=== PATIENT | male | born 1980 | race Caucasian/White ===

== ENCOUNTER 2017-08-03 19:50 | Emergency (ER) | payer SELFPAY ==
[~2017-08-03] VITALS: Ht 180.3 cm; Wt 87.0 kg
[2017-08-03 20:31] VITALS: Ht 180.3 cm; Wt 87.0 kg
--- NOTE | 2017-08-04 00:49 | ERD ---
ER Documentation Chief Complaint Date/Time DATE: 08/04/17 TIME: 00:47 Chief Complaint c/o left foot pain. (+) swelling. States rolled foot during excercise. HPI This 36-year-old male patient presents to emergency department for evaluation of let foot injury. pt reports that he was at the gym 5-6 hours ago doing pull- ups, went to drop down and landed on a object on the floor causing him to roll left foot pt was able to get up w/o assist, report pain with weight bearing. Patient denies numbness or tingling to toes, change in sensation or temperature. ROS All systems reviewed and are negative except as per history of present illness. Medications Home Meds Active Scripts Ibuprofen* (Motrin*) 600 Mg Tab, 600 MG PO Q6, #30 TAB Prov:ISABEL DALAL 08/04/17 Physical Exam Vitals Vital Signs Date Time Temp Pulse Resp B/P Pulse Ox O2 Delivery O2 Flow Rate FiO2 08/03/17 20:31 98.2 91 18 145/69 96 Physical Exam Const: Nourished well-hydrated well-appearing 36-year-old male patient no acute distress, obvious discomfort. Head: Eyes: ENT: Neck: Resp: Cardio: Abd: Skin: Back: Ext: Lower Extremity -left foot: Skin: No laceration, edema with demarcation left foot dorsal along fifth and fourth metatarsal Compartments: Soft Motor: Full active range of motion hip/knee/ankle, patient unable to weight-bear Sensation: Intact to light touch anterior, posterior, and lateral surfaces. Bones: Nontender pelvis/knee/proximal tibia/ malleoli, distal tibial tenderness Joints: No effusion or laxity Pulses/Perfusion: 2+ DP, Capillary refill < 2 seconds Neur: Awake and alert Psych: Normal Mood and Affect Results 24 hrs Current Medications Medications (Trade) Dose Ordered Sig/Stephenie Route PRN Reason Start Time Stop Time Status Last Admin Dose Admin Acetaminophen/ Hydrocodone Bitart ([place] (5/325)) 1 tab ONCE ONCE PO 08/04/17 01:00 08/04/17 01:00 DC Ibuprofen (Motrin) 600 mg ONCE ONCE PO 08/04/17 01:00 08/04/17 01:01 DC 08/04/17 01:11 Procedures/MDM PROCEDURE: XR Foot. CLINICAL INDICATION: Trauma. TECHNIQUE: AP, lateral and oblique views of the left foot was obtained. COMPARISON: There are no similar studies submitted for comparison. FINDINGS: There is an acute avulsion fracture of the epiphysis at the base of the fifth metatarsal bone. No other definite fracture or dislocation is identified. There is overlying soft tissue swelling. No osseous erosions are identified. The joint spaces are within normal limits. IMPRESSION: Avulsion fracture at the base of the fifth metatarsal bone. Electronically viewed and signed by .Kranthi Marie MD, on 08/04/2017 02:09 This pleasant 36-year-old male patient presents to emergency department for evaluation of a left foot injury, patient was at the gym doing pull-ups drop down to the ground and landed on a piece of equipment that was left on the floor. Patient reports hitting the floor hard rolling his ankle and falling. Patient did not need assistance getting up, was able to get to his car, patient reports he is no longer able to weight-bear without pain. Emergency room course includes history, physical, pain control, and a left foot x-ray positive for a avulsion fracture at the base of the fifth metatarsal bone. Patient will be placed in a short leg posterior splint, crutches, with crutch training, follow-up with primary care physician for orthopedic consult or go to any of the orthopedic physicians listed on discharge today. Patient is stable with no new complaints during ER course, clinically there is no current evidence to suggest compartment syndrome, Lisfranc fracture vascular occlusion or any other emergent condition appearing to require further evaluation or hospitalization. I feel the patient is stable for discharge at this time. I have discussed results, examination findings, the treatment plan with the patient and family present prior to discharge. Indications for emergent reevaluation, side effects of medication were also discussed. All questions were answered. Patient verbalizes understanding and agrees with plan of care. Splint Assessment: Neurovascularly intact post splint placement with good fit. Departure Diagnosis: Primary Impression: Metatarsal bone fracture Encounter type: initial encounter Metatarsal bone: fifth Fracture type: closed Fracture alignment: displaced Laterality: left Qualified Code: S92.352A - Closed displaced fracture of fifth metatarsal bone of left foot, initial encounter Condition: Good Patient Instructions: Fracture, Foot Referrals: LINDA RAIN MD,CARLOS BAIRES,OSCAR RAMOS,JONATHAN CAAL MD, JOSEPH P MD FERKEL,MEKA REID,DALJIT BARAJAS MD, MD Additional Instructions: Thank you for for coming to [facility] for your care today. Please ask your nurse or provider if you have questions about your care today and do not leave until all your questions have been answered. Please use any medications given as directed and follow-up with your doctor (or the doctor you were referred to) in the next 2-3 days. If you do not have a primary care doctor you may follow up at the [facility] (listed below). You may also use motrin and tylenol as needed for fever and/or pain unless instructed otherwise by your provider or nurse. Indications for more urgent follow-up have been discussed, but you may return to the Emergency Department at ANY time for any worrisome or worsening symptoms. If you have abdominal pain, please know that no test or exam you received is perfect and you should follow up within 8 hours for continued pain. If you had any imaging studies today, such as an X-Ray or CT Scan, these studies will be reviewed later by a radiologist. You will be called if there are important findings that were not identified today, so make sure the contact information you provided at registration is correct. If you received any narcotic pain control medicine today, such as Vicodin, Morphine or Dilaudid, your coordination and judgment may be affected for a number of hours. Please do not drive or operate heavy machinery, and you may want someone to assist you at home. If you were given a prescription for narcotic medication, be aware that it is very addictive- use sparingly and only if necessary. ISABEL DALAL Aug 04, 2017 00:49
[2017-08-04] MEDS ORDERED: IBUPROFEN 600 MG TAB PO ONE (01:00)
[2017-08-04] MEDS ORDERED: HYDROCODONE/APAP (5/325) TAB PO ONE (01:00)
--- NOTE | 2017-08-04 02:09 | RADRPT ---
PROCEDURE: XR Foot. CLINICAL INDICATION: Trauma. TECHNIQUE: AP, lateral and oblique views of the left foot was obtained. COMPARISON: There are no similar studies submitted for comparison. FINDINGS: There is an acute avulsion fracture of the epiphysis at the base of the fifth metatarsal bone. No ot her definite fracture or dislocation is identified. There is overlying soft tissue swelling. No osse ous erosions are identified. The joint spaces are within normal limits. IMPRESSION: Avulsion fracture at the base of the fifth metatarsal bone. RPTAT: HIKT .Kranthi Marie MD, MD Date Time Electronically viewed and signed by .Kranthi Marie MD, on 08/04/2017 02:09 .T/
[2017-08-04] MEDS ORDERED: IBUP-1542 PO (02:23)
== END 2017-08-04 03:14 | disposition home or self-care (01) ==
LOC: FTE 19:50
DX: S92.352A Displaced fracture of fifth metatarsal bone, left foot, initial encounter for closed fracture (principal); X50.9XXA Other and unspecified overexertion or strenuous movements or postures, initial encounter; Y92.39 Other specified sports and athletic area as the place of occurrence of the external cause